=== PATIENT | female | born 1975 | race Caucasian/White ===

== ENCOUNTER 2023-09-06 14:23 | Outpatient (CLI) | payer OTHER, MEDICAID, SELFPAY ==
--- NOTE | ~2023-09-06 | CT_ITS ---
EXAMINATION: CT abdomen pelvis w con INDICATION: Abdominal pain TECHNIQUE: Computed tomographic images of the abdomen and pelvis were obtained after the administrati on of 100 cc of Omnipaque 350 intravenous contrast. The dose-length product (DLP) was 1123.02 mGy-cm. Automated exposure control and iterative reconstruction technique were employed. COMPARISON: None available FINDINGS: The lung bases are clear. The heart size is normal. Calcified coronary artery atheroscleros is is noted. 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 The liver, spleen, pancreas, and adrenal gl ands are normal. Changes of cholecystectomy are noted. No pathologically enlarged abdominal or pelvic lymph nodes are identified. No free intraperitoneal gas or evidence of bowel obstruction. There is s evere lumbar spondylosis. IMPRESSION: 1. No CT correlate for the patient's symptoms. Reviewed, dictated and finalized at location B. [facility]
[2023-09-06 14:52] LABS: Estimated Glomerular Filt Rate > 60
== END 2023-09-06 14:24 ==
PROVIDERS: PCP Nurse Practitioner; Visit Provider Nurse Practitioner
DX: R10.9 Unspecified abdominal pain (principal)
CPT/HCPCS: 74177; Q9967

== ENCOUNTER 2023-11-26 14:18 | Outpatient (CLI) | payer OTHER, MEDICAID, SELFPAY ==
--- NOTE | ~2023-11-26 | US_ITS ---
US soft tissue abdomen DATE: 11/26/2023 14:38 INDICATION: Abnormal mass, right lower quadrant TECHNIQUE: Real-time imaging of the right lower quadrant COMPARISON: September 06, 2023 CT abdomen pelvis FINDINGS: No abdominal wall mass lesion is noted. The right lower quadrant abdominal cavity is largel y obscured due to bowel gas. IMPRESSION: No abnormality detected Reviewed, dictated and finalized at [facility]. Reviewed, dictated and finalized at location B. IMPRESSION: No abnormality detected
== END 2023-11-26 14:19 ==
LOC: MICIMG 14:18
PROVIDERS: PCP Nurse Practitioner; Visit Provider Nurse Practitioner
DX: R19.03 Right lower quadrant abdominal swelling, mass and lump (principal)
CPT/HCPCS: 76705

== ENCOUNTER 2024-02-09 07:47 | Outpatient (CLI) | payer OTHER, MEDICAID, SELFPAY ==
--- NOTE | ~2024-02-09 | MM_ITS ---
EXAMINATION: MM screening sadi BI w josephine HISTORY: Screening TECHNIQUE: Craniocaudal and mediolateral oblique 3-D tomosynthesis images were obtained and synthetic 2-D images were generated. CAD analysis was submitted and interpreted. COMPARISON: No prior studies BREAST PARENCHYMAL COMPOSITION: Not dense: There are scattered areas of fibroglandular density. FINDINGS: There are asymmetries in the upper outer quadrant of the right breast. No mammographic evid ence for malignancy in the left breast. IMPRESSION: 1. Right breast asymmetries. 2. Recommend comparison to outside mammograms. BI-RADS CATEGORY 0 - INCOMPLETE STUDY, NEED ADDITIONAL IMAGING EVALUATION. Reviewed, dictated and finalized at location B.
== END 2024-02-09 07:48 | disposition home or self-care (01) ==
LOC: CHSIMG 07:48
PROVIDERS: PCP Family Medicine; Visit Provider Nurse Practitioner
DX: Z12.31 Encounter for screening mammogram for malignant neoplasm of breast (principal); R92.8 Other abnormal and inconclusive findings on diagnostic imaging of breast
CPT/HCPCS: 77063; 77067